=== PATIENT | male | born 1975 | race Caucasian/White ===

== ENCOUNTER 2016-11-25 01:17 | Emergency (ER) | payer BC ==
--- NOTE | 2016-11-25 01:33 | Emergency Department Record ---
History of Present Illness - General Chief Complaint: Cough Stated Complaint: COUGH Time Seen by Provider: 11/25/16 01:29 Source: Patient Mode of Arrival: Ambulatory Limitations: No limitations - History of Present Illness Initial Comments: 41 yo male presents to ED with a CC of cough and congestion symptoms for past 1 week. Patient reports intermittent fever, denies health problems at his baseline other than HTN. MD Complaint: Cough Onset/Timin -: Days(s) Severity: Mild Severity scale (1-10): 6 Consistency: Other Improves With: Nothing Worsens With: Nothing Associated Symptoms: Denies other symptoms Treatments Prior to Arrival: None - Related Data Home Medications Medication Instructions Recorded Confirmed Last Taken Omeprazole 20 mg PO DAILY 08/01/16 11/25/16 07/31/16 08:00 Losartan/Hydrochlorothiazide 1 tab PO DAILY 11/25/16 11/25/16 Unknown [Losartan-Hctz 100-25 mg Tab] Previous Rx's Medication Instructions Recorded Cyclobenzaprine HCl [Flexeril] 10 mg PO TID #30 tablet 08/01/16 Naproxen [Naprosyn] 500 mg PO Q12H #20 tab.dr 08/01/16 Albuterol Sulfate [Proair Hfa] 1 - 2 puff IH .EVERY 4-6 HOURS PRN 11/25/16 #1 inhaler Azithromycin [Zithromax] 250 mg PO DAILY #4 tab 11/25/16 Benzonatate [Tessalon] 2 cap PO Q8H PRN #30 cap 11/25/16 Prednisone [Prednisone 20Mg] 20 mg PO TID #12 tab 11/25/16 Allergies Allergy/AdvReac Type Severity Reaction Status Date / Time No Known Drug Allergies Allergy Verified 08/01/16 02:23 Travel Screening - Travel/Exposure Within Last 30 Days Have you traveled within the last 30 days?: No - Travel/Exposure Within Last Year Have you traveled outside the [place] in the last year?: No - Additonal Travel Details Have you been exposed to anyone with a communicable illness?: No - Travel Symptoms Symptom Screening: None Review of Systems Constitutional: Reports: Fever. Denies: Chills, Malaise, Night sweats Eyes: Denies: Eye discharge, Eye pain, Photophobia ENT: Reports: Congestion. Denies: Ear pain, Epistaxis Respiratory: Reports: Cough. Denies: Hemoptysis, Stridor Cardiovascular: Denies: Chest pain, Dyspnea on exertion, Syncope Endocrine: Denies: Fatigue, Heat or cold intolerance Gastrointestinal: Denies: Abdominal pain, Nausea, Vomiting Genitourinary: Denies: Hematuria, Incontinence, Retention, Testicular pain Musculoskeletal: Denies: Arthralgia, Back pain, Gout, Joint swelling Skin: Denies: Bruising, Change in color, Rash Neurological: Denies: Abnormal gait, Confusion, Headache, Seizure Psychiatric: Denies: Anxiety Hematological/Lymphatic: Denies: Anemia, Blood Clots Past Medical History - SOCIAL HISTORY Smoking Status: Never smoker Alcohol Use: None Drug Use: None - RESPIRATORY Hx Respiratory Disorders: No - CARDIOVASCULAR Hx Cardio Disorders: Yes Hx Hypertension: Yes - NEURO Hx Neuro Disorders: No - GI Hx GI Disorders: Yes Hx Reflux: Yes - Hx Genitourinary Disorders: Yes Comment:: Right kidney removed - ENDOCRINE Hx Endocrine Disorders: No - MUSCULOSKELETAL Hx Musculoskeletal Disorders: Yes Comment:: l5 herniated disc - PSYCH Hx Psych Problems: No - HEMATOLOGY/ONCOLOGY Hx Hematology/Oncology Disorders: No Family Medical History Any Significant Family History?: No Hx Cancer: Mother Hx Diabetes: Grandparents Hx Heart Disease: Father Physical Exam - General General Appearance: Alert, Oriented x3, Cooperative, No acute distress Limitations: No limitations - Head Head exam: Atraumatic, Normocephalic, Normal inspection Head exam detail: negative: Abrasion, Contusion, Nixon's sign, General tenderness, Hematoma, Laceration - Eye Eye exam: Normal appearance. negative: Conjunctival injection, Periorbital swelling, Periorbital tenderness, Scleral icterus - ENT Ear exam: negative: Auricular hematoma, Auricular trauma Nasal Exam: negative: Active bleeding, Discharge, Dried blood, Foreign body Mouth exam: negative: Drooling, Laceration, Muffled voice, Tongue elevation - Neck Neck exam: Normal inspection. negative: Meningismus, Tenderness - Respiratory Respiratory exam: Normal lung sounds bilaterally. negative: Rales, Respiratory distress, Rhonchi, Stridor - Cardiovascular Cardiovascular Exam: Regular rate, Normal rhythm, Normal heart sounds - GI/Abdominal GI/Abdominal exam: Soft. negative: Rebound, Rigid, Tenderness - Rectal Rectal exam: Deferred - exam: Deferred - Extremities Extremities exam: Normal inspection. negative: Calf tenderness, Pedal edema, Tenderness - Back Back exam: Denies: CVA tenderness (R), CVA tenderness (L) - Neurological Neurological exam: Alert, Normal gait, Oriented X3 - Psychiatric Psychiatric exam: Normal affect, Normal mood - Skin Skin exam: Normal color. negative: Abrasion Type of lesion: negative: abrasion Course Vital Signs 11/25/16 01:18 Temperature 98.2 F Pulse Rate 97 H Respiratory 20 Rate Blood Pressure 156/108 Pulse Ox 96 - Reevaluation(s) Reevaluation #1: 11/25/16 01:38 Patient is well appearing on examination, will treat with Albuterol, Prednisone , Zithromax, and Tessalon for his bronchitis symptoms. Patient appears stable for discharge at this time. Disposition Disposition: Discharge Clinical Impression: Bronchitis Instructions: Acute Bronchitis (ED) Additional Instructions: Return to ED if your symptoms worsen or if you have any concerns. Zithromax, Prednisone, Tessalon, and Albuterol as directed. Follow-up with your family doctor in 3-5 days as directed. Prescriptions: Prednisone [Prednisone 20Mg] 20 mg PO TID #12 tab Albuterol Sulfate [Proair Hfa] 1 - 2 puff IH .EVERY 4-6 HOURS PRN #1 inhaler PRN Reason: Difficulty In Breathing Benzonatate [Tessalon] 2 cap PO Q8H PRN #30 cap PRN Reason: Cough Azithromycin [Zithromax] 250 mg PO DAILY #4 tab Forms: Patient Portal Access Time of Disposition: 01:33
[2016-11-25] MEDS: BENZONATATE 100 MG CAPSULE PO ONE (01:39)
[2016-11-25] MEDS: AZITHROMYCIN 500 MG TABLET PO SCH (01:39)
[2016-11-25] MEDS: PREDNISONE 20 MG TAB PO ONE (01:40)
== END 2016-11-25 01:44 | disposition home or self-care (01) ==
LOC: ER 01:17
DX: J20.9 Acute bronchitis, unspecified (principal); I10 Essential (primary) hypertension
CPT/HCPCS: 99282; J7512

== ENCOUNTER 2017-02-25 22:08 | Emergency (ER) | payer BC ==
[2017-02-25] MEDS ORDERED: GENTAMICIN SULFATE 0.3% OPTH 5 ML BTL OPTH ONE (22:53)
--- NOTE | 2017-02-25 23:04 | Emergency Department Record ---
History of Present Illness - General Chief complaint: Eye Problem Stated complaint: BLEEDING IN LEFT EYE Time Seen by Provider: 02/25/17 22:46 Source: Patient Mode of Arrival: Ambulatory Limitations: No limitations - History of Present Illness Initial comments: pt having recurrent subconjunctival hemorrhage in l eye. pt was told before by local 'eye doctor'that he must see specialist if it happens again. pt has lesion on eye for 6 months. no loss of vision. eye feels dry chief complaint: Eye redness Onset/Timin -: Hour(s) Onset Description: Gradual Location: Left eye Place: Home If Injury: None Eye Symptoms: Itching Severity: Mild Severity scale (1-10): 2 If Pain, Quality: Aching Consistency: Intermittent Associated Symptoms: None Treatments Prior to Arrival: None - Related Data Visual acuity (L) = 20/: 40 Visual acuity (R) = 20/: 25 With correction: No Hx Tetanus Toxoid Vaccination: No Patient Tetanus UTD (within 5 yrs): Yes Home Medications Medication Instructions Recorded Confirmed Last Taken Omeprazole 20 mg PO DAILY 08/01/16 02/25/17 07/31/16 08:00 Losartan/Hydrochlorothiazide 1 tab PO DAILY 11/25/16 02/25/17 Unknown [Losartan-Hctz 100-25 mg Tab] Ibuprofen [Ibuprofen] 800 mg PO DAILY 02/25/17 02/25/17 Unknown Oxcarbazepine [Trileptal] 300 mg PO BID 02/25/17 02/25/17 Unknown Spironolactone [Spironolactone] 25 mg PO DAILY 02/25/17 02/25/17 Unknown Allergies Allergy/AdvReac Type Severity Reaction Status Date / Time lorazepam [From Ativan] Allergy ALTERED Verified 02/25/17 22:14 MENTAL STATUS Travel Screening - Travel/Exposure Within Last 30 Days Have you traveled within the last 30 days?: No - Travel/Exposure Within Last Year Have you traveled outside the [place] in the last year?: No - Additonal Travel Details Have you been exposed to anyone with a communicable illness?: No - Travel Symptoms Symptom Screening: None Review of Systems Reviewed: No additional complaints except as noted below Constitutional: Reports: As per HPI. Denies: Chills, Fever, Malaise, Night sweats, Weakness, Weight change Eyes: Reports: As per HPI. Denies: Eye discharge, Eye pain, Photophobia, Vision change ENT: Reports: As per HPI. Denies: Congestion, Dental pain, Ear pain, Epistaxis , Hearing loss, Throat pain Respiratory: Reports: As per HPI. Denies: Cough, Dyspnea, Hemoptysis, Stridor, Wheezes Cardiovascular: Reports: As per HPI. Denies: Arrhythmia, Chest pain, Dyspnea on exertion, Edema, Murmurs, Orthopnea, Palpitations, Paroxysmal nocturnal dyspnea, Rheumatic Fever, Syncope Endocrine: Reports: As per HPI. Denies: Fatigue, Heat or cold intolerance, Polydipsia, Polyuria Gastrointestinal: Reports: As per HPI. Denies: Abdominal pain, Constipation, Diarrhea, Hematemesis, Hematochezia, Melena, Nausea, Vomiting Genitourinary: Reports: As per HPI. Denies: Dysuria, Frequency, Hematuria, Incontinence, Retention, Testicular pain, Testicular mass, Urgency Musculoskeletal: Reports: As per HPI. Denies: Arthralgia, Back pain, Gout, Joint swelling, Myalgia, Neck pain Skin: Reports: As per HPI. Denies: Bruising, Change in color, Change in hair/ nails, Lesions, Pruritus, Rash Neurological: Reports: As per HPI. Denies: Abnormal gait, Confusion, Headache, Numbness, Paresthesias, Seizure, Tingling, Tremors, Vertigo, Weakness Psychiatric: Reports: As per HPI. Denies: Anxiety, Auditory hallucinations, Depression, Homicidal thoughts, Suicidal thoughts, Visual hallucinations Hematological/Lymphatic: Reports: As per HPI. Denies: Anemia, Blood Clots, Easy bleeding, Easy bruising, Swollen glands Past Medical History - SOCIAL HISTORY Smoking Status: Never smoker Alcohol Use: None Drug Use: None - RESPIRATORY Hx Respiratory Disorders: No - CARDIOVASCULAR Hx Cardio Disorders: Yes Hx Hypertension: Yes - NEURO Hx Neuro Disorders: No - GI Hx GI Disorders: Yes Hx Reflux: Yes - Hx Genitourinary Disorders: Yes Comment:: Right kidney removed - ENDOCRINE Hx Endocrine Disorders: No - MUSCULOSKELETAL Hx Musculoskeletal Disorders: Yes Comment:: L5 herniated disc - PSYCH Hx Psych Problems: Yes Hx Behavior Problems: Yes Comment:: bipolar - HEMATOLOGY/ONCOLOGY Hx Hematology/Oncology Disorders: No Family Medical History Any Significant Family History?: No Hx Cancer: Mother Hx Diabetes: Grandparents Hx Heart Disease: Father Physical Exam - General General Appearance: Alert, Oriented x3, Cooperative, No acute distress - Head Head exam: Normal inspection - Eye Eye exam: Normal appearance, PERRL, Conjunctival injection, EOMI, Other ( subconjunctival hemorrhage) Pupils: Normal accommodation With correction: No - ENT ENT exam: Normal exam, Mucous membranes moist, Normal external ear exam, Normal orophraynx, TM's normal bilaterally Ear exam: Normal external inspection. negative: External canal tenderness Nasal Exam: Normal inspection. negative: Discharge, Sinus tenderness Mouth exam: Normal external inspection, Tongue normal Teeth exam: Normal inspection. negative: Dental caries Throat exam: Normal inspection. negative: Tonsillar erythema, Tonsillar exudate - Neck Neck exam: Normal inspection, Full ROM. negative: Tenderness - Respiratory Respiratory exam: Normal lung sounds bilaterally. negative: Respiratory distress - Cardiovascular Cardiovascular Exam: Regular rate, Normal rhythm, Normal heart sounds - GI/Abdominal GI/Abdominal exam: Soft, Normal bowel sounds. negative: Tenderness - Rectal Rectal exam: Deferred - exam: Deferred - Extremities Extremities exam: Normal inspection, Full ROM, Normal capillary refill. negative: Tenderness - Back Back exam: Reports: Normal inspection, Full ROM. Denies: Muscle spasm, Rash noted, Tenderness - Neurological Neurological exam: Alert, Normal gait, Oriented X3, Reflexes normal - Psychiatric Psychiatric exam: Normal affect, Normal mood - Skin Skin exam: Dry, Intact, Normal color, Warm Course Vital Signs 02/25/17 22:13 Pulse Rate 94 H Respiratory 18 Rate Blood Pressure 163/113 Pulse Ox 96 - Reevaluation(s) Reevaluation #1: 02/25/17 23:08 pt has recurring subconjunctival hemorrhage of his l eye w actual bleeding from eye. he also has a lesion on the conjunctiva. he should follow up w dr arevalo though pt was reassured re sh Disposition Disposition: Discharge Clinical Impression: Subconjunctival hemorrhage of left eye, Lesion of eye Disposition: Home, Self-Care Condition: (1) Good Instructions: Subconjunctival Hemorrhage (ED) Additional Instructions: sleep elevated. follow up with opthamology regarding lesion on eye. gentamicin drops 4x a day for 5 days. return sooner if worse Referrals: OLI AREVALO [MEDICAL DOCTOR] - [facility] Specialty Clinics [Provider Group] Forms: Patient Portal Access
== END 2017-02-25 23:19 | disposition home or self-care (01) ==
LOC: ER 22:08
DX: H11.32 Conjunctival hemorrhage, left eye (principal); H11.89 Other specified disorders of conjunctiva
CPT/HCPCS: 99282